=== PATIENT | male | born 1960 | race Caucasian/White ===

== ENCOUNTER 2018-05-14 15:13 | Day surgery (SDC) | payer BC, MEDICARE ==
[~2018-05-14 15:13] MED LIST: DIPHENHYDRAMINE HCL 50 MG/ML VIAL ONE; EPINEPHRINE INJ 1 MG/10 ML DISP.SYRIN ONE; FENTANYL CITRATE INJ/PF 100 MCG/2 ML AMPUL ONE; FLUMAZENIL INJ 0.5 MG/5 ML VIAL ONE; GLUCAGON,HUMAN RECOMB 1 MG INJ ONE; NALOXONE HCL INJ/PF 0.4 MG/1 ML SDV ONE; ONDANSETRON HCL INJ/PF 4 MG/2 ML SDV ONE
[2018-05-14] MEDS: MIDAZOLAM 2 MG/2 ML INJ ONE ×2 (16:27→16:34)
--- NOTE | 2018-05-14 16:43 | Operative Report ---
Operative Report DATE OF SURGERY: 05/14/18 Operative Report: Pre-op diagnosis: Heme positive stool Post-op diagnosis: Antral gastritis Surgery: Esophagogastroduodenoscopy with biopsy Medications: Versed 3 mg Fentanyl 100 mcg IV push Tissue removed: Antral and gastric body biopsy for pathology Procedure: After informed consent obtained from patient, the throat was sprayed with Hurricane and conscious sedation was achieved. The upper endoscope was inserted into the esophagus under direct vision and advanced into the stomach. The duodenum was entered and examined to the second part. Endoscope was then slowly pulled out of the patient as the mucosa was examined into details. Patient tolerated procedure well. Findings Esophagus: Normal Z-line at: 40 cm Antrum: Mild erythema Body: Normal Fundus: Normal Duodenum first part: Normal Duodenum second part: Normal Plan: Await pathology. Omeprazole for 6 weeks OPERATION: .
[2018-05-14 17:47] VITALS: BP 108/73
== END 2018-05-14 17:50 | disposition home or self-care (01) ==
LOC: END 15:13
PROVIDERS: ATTEND Internal Medicine Gastroenterology
DX: K29.50 Unspecified chronic gastritis without bleeding (principal); E78.00 Pure hypercholesterolemia, unspecified; E11.9 Type 2 diabetes mellitus without complications; I11.0 Hypertensive heart disease with heart failure; I50.9 Heart failure, unspecified; Z79.899 Other long term (current) drug therapy; Z79.01 Long term (current) use of anticoagulants; Z79.84 Long term (current) use of oral hypoglycemic drugs; Z86.010 Personal history of colon polyps; Z95.810 Presence of automatic (implantable) cardiac defibrillator
CPT/HCPCS: 43239; 82962; 88305 ×2; J2250; J3010; J0171; J1200; J1610; J2310; J2405; J3490

== ENCOUNTER 2018-05-21 14:30 | Day surgery (SDC) | payer BC, MEDICARE ==
[2018-05-21] MEDS ORDERED: DIPHENHYDRAMINE HCL 50 MG/ML VIAL ONE (15:12)
[2018-05-21] MEDS ORDERED: ONDANSETRON HCL INJ/PF 4 MG/2 ML SDV ONE (15:12)
[2018-05-21] MEDS ORDERED: EPINEPHRINE INJ 1 MG/10 ML DISP.SYRIN ONE (15:13)
[2018-05-21] MEDS ORDERED: FENTANYL CITRATE INJ/PF 100 MCG/2 ML AMPUL ONE (15:13)
[2018-05-21] MEDS ORDERED: NALOXONE HCL INJ/PF 0.4 MG/1 ML SDV ONE (15:13)
[2018-05-21] MEDS ORDERED: FLUMAZENIL INJ 0.5 MG/5 ML VIAL ONE (15:13)
[2018-05-21] MEDS ORDERED: GLUCAGON,HUMAN RECOMB 1 MG INJ ONE (15:14)
[2018-05-21] MEDS: MIDAZOLAM 2 MG/2 ML INJ ONE ×3 (15:46→15:52)
--- NOTE | 2018-05-21 16:21 | Operative Report ---
Operative Report DATE OF SURGERY: 05/21/18 Operative Report: Pre-op diagnosis: History of colon polyps Post-op diagnosis: Transverse colon polyp Surgery: Colonoscopy with polypectomy Medications: Versed 4 mg, Fentanyl 100 mcg IV push Tissue removed: Transverse colon polyp Procedure: After informed consent obtained from patient, conscious sedation was achieved. A digital rectal examination was performed and this was unremarkable. The colonoscope was inserted into the rectum and advanced to the cecum. The appendiceal orifice and the terminal ileum were both identified. The mucosa was examined into details as the colonoscope was slowly pulled out of the patient. The endoscope was retroflexed in the rectum. Patient tolerated the procedure well. Findings Cecum: Normal Ascending colon: Normal Transverse colon: A 4 mm polyp was removed from the proximal transverse colon with a hot snare Descending colon: Normal Sigmoid colon: Normal Rectum: Normal except for internal hemorrhoids Plan: Await pathology. Follow-up colonoscopy in 5 years. He can resume Coumadin tonight OPERATION: .
[2018-05-21 17:05] VITALS: BP 107/66
== END 2018-05-21 17:10 | disposition home or self-care (01) ==
LOC: END 14:30
PROVIDERS: ATTEND Internal Medicine Gastroenterology
DX: D12.3 Benign neoplasm of transverse colon (principal); K64.8 Other hemorrhoids; Z86.010 Personal history of colon polyps; E11.9 Type 2 diabetes mellitus without complications; I11.0 Hypertensive heart disease with heart failure; I50.9 Heart failure, unspecified; E78.00 Pure hypercholesterolemia, unspecified; E66.9 Obesity, unspecified; Z68.31 Body mass index [BMI] 31.0-31.9, adult; Z79.899 Other long term (current) drug therapy; Z79.84 Long term (current) use of oral hypoglycemic drugs; Z79.01 Long term (current) use of anticoagulants; Z95.810 Presence of automatic (implantable) cardiac defibrillator
CPT/HCPCS: 45385; 82962; 88305 ×2; J2250; J3010; J0171; J1200; J1610; J2310; J2405; J3490

== ENCOUNTER → 2019-05-06 | Outpatient (CLI) | payer BC, MEDICARE ==
[2019-05-06 11:24] LABS: ANION GAP 14 (5-19); BLOOD UREA NITROGEN 37 mg/dL (7-20); CARBON DIOXIDE 30 mmol/L (22-30); CHLORIDE 96 mmol/L (98-107); GLUCOSE 174 mg/dL (75-110); POTASSIUM 3.3 mmol/L (3.6-5.0)
== END ==
LOC: OD 10:10
PROVIDERS: ATTEND Internal Medicine
DX: I50.9 Heart failure, unspecified (principal)
CPT/HCPCS: 36415; 80048